=== PATIENT | female | born 1985 | race Caucasian/White ===

== ENCOUNTER → 2022-01-04 | Outpatient (CLI) | payer MEDICARE, OTHER | LOC: EXRD 01-02 09:45 | DX: R16.0 Hepatomegaly, not elsewhere classified (principal) | CPT/HCPCS: 76705 ==

== ENCOUNTER 2022-03-04 15:00 | Inpatient (IN) | payer MEDICARE, OTHER ==
[~2022-03-04] VITALS: Ht 172.7 cm; Wt 163.7 kg
[2022-03-04 16:10] LABS: HEMOGLOBIN 10.1 gm/dl (12.3-15.3); RED BLOOD COUNT 4.47 M/UL (4.00-5.10); WHITE BLOOD COUNT 10.6 K/UL (4.5-11.0)
[2022-03-04 17:40] LABS: BUN/CREATININE RATIO 123 (0-10)
[2022-03-05 06:07] LABS: HEMOGLOBIN 9.9 gm/dl (12.3-15.3); RED BLOOD COUNT 4.43 M/UL (4.00-5.10); WHITE BLOOD COUNT 10.7 K/UL (4.5-11.0)
[2022-03-05 06:32] LABS: BUN/CREATININE RATIO 21 (0-10)
[2022-03-05] MEDS ORDERED: BUPRENORPHIN-N1 EACH SL (09:03)
[2022-03-05] MEDS ORDERED: ALLOPURINOL300 MG PO (09:03)
[2022-03-05] MEDS ORDERED: DULOXETINE HCL20 MG PO (09:03)
[2022-03-05] MEDS ORDERED: RISPERIDONE2 MG PO (09:04)
[2022-03-05] MEDS ORDERED: SERTRALINE HCL100 MG PO (09:04)
[2022-03-05] MEDS ORDERED: JANUVIA100 MG PO (09:04)
[2022-03-05] MEDS ORDERED: MIRTAZAPINE15 MG PO (09:04)
[2022-03-05] MEDS ORDERED: PRAVASTATIN SOD20 MG PO (09:04)
[2022-03-05] MEDS ORDERED: GABAPENTIN300 MG PO (09:05)
[2022-03-05] MEDS ORDERED: METOCLOPRAM5 MG/5 M1 PO (09:05)
[2022-03-05] MEDS ORDERED: TOPIRAMATE100 MG PO ×2 (09:06→09:07)
[2022-03-05] MEDS ORDERED: ZOFRAN ODT 4 MG4 MG PO (09:06)
[2022-03-05] MEDS ORDERED: FENOFIBRATE145 MG PO (09:07)
[2022-03-05] MEDS ORDERED: FUROSEMIDE20 MG PO (09:08)
[2022-03-05] MEDS ORDERED: EPIPEN 2-P0.3 MG/0.3 INJ (09:08)
[2022-03-05] MEDS ORDERED: IPRAT-ALBUT 0.5-3 ML INH (09:08)
[2022-03-05] MEDS ORDERED: THEOPHYLLINE A450 MG PO ×2 (09:09→09:10)
[2022-03-05] MEDS ORDERED: FLONASE ALLER15.8 ML (09:10)
[2022-03-05] MEDS ORDERED: FLOMAX 0.4 MG0.4 MG PO (09:10)
[2022-03-05] MEDS ORDERED: UBRELVY50 MG PO (09:11)
[2022-03-05] MEDS ORDERED: EMGALITY120 MG/1 M SQ (09:11)
[2022-03-05] MEDS ORDERED: INCRUSE ELLI62.5 MCG INH (09:12)
[2022-03-05] MEDS ORDERED: OMEPRAZOLE40 MG PO (09:12)
[2022-03-05] MEDS ORDERED: ROPINIROLE HC0.25 MG PO (09:12)
[2022-03-05] MEDS ORDERED: MONTELUKAST SOD10 MG PO (09:12)
[2022-03-05] MEDS ORDERED: ELIQUIS5 MG PO (09:12)
[2022-03-05] MEDS ORDERED: PROAIR HFA8.5 GM INH (09:13)
[2022-03-05] MEDS ORDERED: PRAZOSIN HCL1 MG PO (09:13)
[2022-03-05] MEDS ORDERED: TIZANIDINE HCL2 MG PO (09:13)
[2022-03-05] MEDS ORDERED: METFORMIN HCL1000 MG PO (09:14)
[2022-03-05] MEDS ORDERED: AMLODIPINE BESY10 MG PO (09:14)
[2022-03-05] MEDS ORDERED: VRAYLAR3 MG PO (09:14)
[2022-03-06 07:32] LABS: HEMOGLOBIN 10.2 gm/dl (12.3-15.3); RED BLOOD COUNT 4.63 M/UL (4.00-5.10)
[2022-03-06 07:33] LABS: WHITE BLOOD COUNT 13.8 K/UL (4.5-11.0)
[2022-03-06 07:54] LABS: BUN/CREATININE RATIO 29 (0-10)
--- NOTE | 2022-03-06 12:57 | NUR ---
PATIENT TRANSFERRED TO ICU 2121. PULOMONOLOGY, RT AND NURSING AT BEDSIDE. PT AAOX3. BIPAP INTACT. ABLE TO MAKE NEEDS KNOWN. REPORT GIVEN TO RECEIVING NURSE.
--- NOTE | 2022-03-06 15:17 | NUR ---
03/06/22 5 RINGS, 1 NECKLACE, AND 1 TONGUE RING REMOVED WHEN PATIENT ARRIEVED TO THE ICU AND GIVEN TO PATIENTS , MUSA CANDELARIA.
[2022-03-06 21:12] LABS: BUN/CREATININE RATIO 27 (0-10)
[2022-03-07 05:16] LABS: HEMOGLOBIN 9.7 gm/dl (12.3-15.3); RED BLOOD COUNT 4.27 M/UL (4.00-5.10); WHITE BLOOD COUNT 12.2 K/UL (4.5-11.0)
[2022-03-07 05:33] LABS: BUN/CREATININE RATIO 29 (0-10)
[2022-03-08 05:03] LABS: HEMOGLOBIN 9.7 gm/dl (12.3-15.3); RED BLOOD COUNT 4.33 M/UL (4.00-5.10); WHITE BLOOD COUNT 11.4 K/UL (4.5-11.0)
[2022-03-08 05:21] LABS: BUN/CREATININE RATIO 32 (0-10)
[2022-03-09 05:09] LABS: HEMOGLOBIN 9.6 gm/dl (12.3-15.3); RED BLOOD COUNT 4.34 M/UL (4.00-5.10); WHITE BLOOD COUNT 12.3 K/UL (4.5-11.0)
[2022-03-09 05:15] LABS: BUN/CREATININE RATIO 29 (0-10)
[2022-03-10 05:15] LABS: HEMOGLOBIN 10.1 gm/dl (12.3-15.3); RED BLOOD COUNT 4.51 M/UL (4.00-5.10); WHITE BLOOD COUNT 12.1 K/UL (4.5-11.0)
[2022-03-10 05:35] LABS: BUN/CREATININE RATIO 28 (0-10)
--- NOTE | 2022-03-10 15:37 | NUR ---
PT MOVED TO BARIATRIC BED
[2022-03-11 04:28] LABS: HEMOGLOBIN 9.3 gm/dl (12.3-15.3); RED BLOOD COUNT 4.21 M/UL (4.00-5.10); WHITE BLOOD COUNT 14.1 K/UL (4.5-11.0)
[2022-03-11 04:55] LABS: BUN/CREATININE RATIO 36 (0-10)
[2022-03-11] MEDS ORDERED: WIXELA 500-501 EACH INH (10:52)
--- NOTE | 2022-03-11 11:02 | NUR ---
PT EXPRESSED CONCERNS SAYING SHE WANTED TO GO HOME DUE TO PERSONAL HOME MATTERS. DISCUSSED WITH PULMONOLOGY, PER DR. CHILDS, PT IS OK TO TO D/C FROM PULMONOLOGY STAND POINT. i CALLED TO DISCUSS WITH PRIMARY. ORDER OBTAINED FOR CASE MANAGEMENT CONSULT FOR BIPAP AT HOME, HOME 02 AND HOME HEALTH. CASE MANAGEMENT CONTACTED.
--- NOTE | 2022-03-11 11:05 | NUR ---
PT 02 SAT ON ROOM AIR IS 87% @ 1107
--- NOTE | 2022-03-11 12:04 | NUR ---
Report called to [facility] on pcu at [phone]
[2022-03-11] MEDS ORDERED: METOCLOPRAMIDE H5 MG PO (19:03)
[2022-03-11] MEDS ORDERED: BENZONATATE100 MG PO (19:03)
[2022-03-11] MEDS ORDERED: PREDNISONE 10 M10 MG GT (19:10)
[2022-03-11] MEDS ORDERED: OMNICEF 300 MG300 MG PO (19:10)
--- NOTE | 2022-03-11 19:30 | NUR ---
PT LEFT BEFORE DISCHARGE PAPERWORK AND INSTRUCTIONS COULD BE GIVEN. PT AWARE TO FOLLOW UP WITH HER PRIMARY AND SPECIALISTS IN [place]. PT WAS STABLE, IV AND MONROY REMOVED. PT LEFT VIA WHEELCHAIR WITH HUSBANDS ASSISTANCE.
== END 2022-03-11 19:36 | disposition home or self-care (01) | DRG 871 ==
LOC: ER1 15:00 → CDU 21:07 → MED SURG 4 21:07 → CCU 03-06 12:46 → PROG CARE 03-11 13:13
PROVIDERS: Internal Medicine; Internal Medicine Critical Care Medicine; Internal Medicine Pulmonary Disease; Physician Assistant; ADMIT Internal Medicine
PROC: B24BZZZ Ultrasonography of Heart with Aorta (ICD-10-PCS; principal; 2022-03-06)
PROC: 02HV33Z Insertion of Infusion Device into Superior Vena Cava, Percutaneous Approach (ICD-10-PCS; 2022-03-06)
PROC: B548ZZA Ultrasonography of Superior Vena Cava, Guidance (ICD-10-PCS; 2022-03-06)
PROC: 0BH17EZ Insertion of Endotracheal Airway into Trachea, Via Natural or Artificial Opening (ICD-10-PCS; 2022-03-06)
PROC: 5A09357 Assistance with Respiratory Ventilation, Less than 24 Consecutive Hours, Continuous Positive Airway Pressure (ICD-10-PCS; 2022-03-06)
PROC: 5A1945Z Respiratory Ventilation, 24-96 Consecutive Hours (ICD-10-PCS; 2022-03-06)
PROC: 5A09357 Assistance with Respiratory Ventilation, Less than 24 Consecutive Hours, Continuous Positive Airway Pressure (ICD-10-PCS; 2022-03-08)
DX: A41.9 Sepsis, unspecified organism (principal); J18.9 Pneumonia, unspecified organism; J96.21 Acute and chronic respiratory failure with hypoxia; Z20.822 Contact with and (suspected) exposure to COVID-19; J96.22 Acute and chronic respiratory failure with hypercapnia; R65.21 Severe sepsis with septic shock; J45.901 Unspecified asthma with (acute) exacerbation; E66.2 Morbid (severe) obesity with alveolar hypoventilation; F11.20 Opioid dependence, uncomplicated; G89.4 Chronic pain syndrome; E11.65 Type 2 diabetes mellitus with hyperglycemia; T38.0X5A Adverse effect of glucocorticoids and synthetic analogues, initial encounter; M10.9 Gout, unspecified; E11.40 Type 2 diabetes mellitus with diabetic neuropathy, unspecified; J45.909 Unspecified asthma, uncomplicated; M25.551 Pain in right hip; F17.210 Nicotine dependence, cigarettes, uncomplicated; I11.0 Hypertensive heart disease with heart failure; I50.9 Heart failure, unspecified; Z99.81 Dependence on supplemental oxygen; Z79.4 Long term (current) use of insulin; Z98.890 Other specified postprocedural states; Z88.0 Allergy status to penicillin; Z88.8 Allergy status to other drugs, medicaments and biological substances; Z91.040 Latex allergy status; Z74.01 Bed confinement status
CPT/HCPCS: ECHO; 0240U; 31500; 36415; 36600; 71045; 73501; 80048; 80053; 80198; 81001; 82550; 82553; 82803; 82962; 83605; 83735; 83880; 84100; 84484; 84703; 85025; 85027; 85379; 85610; 85730; 86140; 87040; 87070; 87081; 87205; 93005; 93306; 94002; 94003; 94640; 94660; 94664; 94760; 94762; 96372; 96374; 96375; 96376; 99285; C9113; G0378; J0330; J1650; J1940; J2185; J2250; J2704; J2920; J2930; J3475; Q9957; Q9967

== ENCOUNTER → 2022-03-25 | Outpatient (CLI) | payer MEDICARE, OTHER ==
[~2022-03-25] MED LIST: ALLOPURINOL300 MG PO; AMLODIPINE BESY10 MG PO; BENZONATATE100 MG PO; BUPRENORPHIN-N1 EACH SL; DULOXETINE HCL20 MG PO; ELIQUIS5 MG PO; EMGALITY120 MG/1 M SQ; EPIPEN 2-P0.3 MG/0.3 INJ; FENOFIBRATE145 MG PO; FLOMAX 0.4 MG0.4 MG PO; FLONASE ALLER15.8 ML; FUROSEMIDE20 MG PO; GABAPENTIN300 MG PO; INCRUSE ELLI62.5 MCG INH; IPRAT-ALBUT 0.5-3 ML INH; JANUVIA100 MG PO; METFORMIN HCL1000 MG PO; METOCLOPRAM5 MG/5 M1 PO; METOCLOPRAMIDE H5 MG PO; MIRTAZAPINE15 MG PO; MONTELUKAST SOD10 MG PO; OMEPRAZOLE40 MG PO; OMNICEF 300 MG300 MG PO; PRAVASTATIN SOD20 MG PO; PRAZOSIN HCL1 MG PO; PREDNISONE 10 M10 MG GT; PROAIR HFA8.5 GM INH; RISPERIDONE2 MG PO; ROPINIROLE HC0.25 MG PO; SERTRALINE HCL100 MG PO; THEOPHYLLINE A450 MG PO; TIZANIDINE HCL2 MG PO; TOPIRAMATE100 MG PO; UBRELVY50 MG PO; VRAYLAR3 MG PO; WIXELA 500-501 EACH INH; ZOFRAN ODT 4 MG4 MG PO
== END ==
LOC: HEART 5 15:02
DX: R06.02 Shortness of breath (principal)
CPT/HCPCS: 94060; 94729